=== PATIENT | female | born 1965 | race Caucasian/White ===

== ENCOUNTER 2018-12-29 13:47 | Emergency (ER) | payer OTHER, BC ==
[2018-12-29] MEDS: IBUPROFEN 600 MG TAB PO (14:54)
[2018-12-29] MEDS: LORAZEPAM 0.5 MG TAB PO (14:54)
== END 2018-12-29 15:15 | disposition home or self-care (01) ==
LOC: FTE 13:47
DX: F41.9 Anxiety disorder, unspecified (principal); J01.90 Acute sinusitis, unspecified; R07.89 Other chest pain
CPT/HCPCS: 93005; 99283-25